=== PATIENT | male | born 1985 | race Caucasian/White ===

== ENCOUNTER 2017-11-21 19:28 | Emergency (ER) | payer SELFPAY ==
[~2017-11-21] VITALS: Ht 167.6 cm; Wt 68.5 kg
[~2017-11-21 19:28] MED LIST: ERYTOIN10 RIGHT EYE
[2017-11-21 19:35] VITALS: BP 168/65; PULSE 83; RESP 16; TEMP 99; O2SAT 96
--- NOTE | 2017-11-21 20:14 | PD ---
HPI Chief Complaint: Abdominal Pain Time Seen by Provider: 20:00 Travel History International Travel<30 days: No Contact w/Intl Traveler<30days: No Traveled to known affect area: No History of Present Illness HPI pt is a 32 y.o male with a hx of appendectomy at a younger age who presents to the ED with a CC of RLQ pain. Pt states that the pain started 3 days ago at work as a 7/10 sharp, non-radiating pain. Each episodes of pain lasted 30 minutes. Pt states that pain is now constant and 8/10.Denies associated fever, nausea, vomiting, dysuria, hematuria associated with the pain. Denies any hx of similar sxs. States pain worsens when he exerts himself or twists. History Past Medical History Medical History: Denies Significant Hx Social History Alcohol Use: Yes (SOCIAL) Tobacco Use: Yes (1 PPD) Allergies-Medications (Allergen,Severity, Reaction): Coded Allergies: No Known Allergies (Verified Adverse Reaction, Unknown, 11/21/17) Reported Meds & Prescriptions Reported Meds & Active Scripts Active No Active Prescriptions or Reported Medications Review of Systems Except as stated in HPI: all other systems reviewed are Neg Physical Exam Narrative GENERAL: Well-developed well-nourished no obvious distress, thin build. SKIN: Warm and dry. HEAD: Atraumatic. Normocephalic. EYES: Pupils equal and round. No scleral icterus. No injection or drainage. ENT: No nasal bleeding or discharge. Mucous membranes pink and moist. NECK: Trachea midline. No JVD. CARDIOVASCULAR: Regular rate and rhythm. RESPIRATORY: No accessory muscle use. Clear to auscultation. Breath sounds equal bilaterally. GASTROINTESTINAL: Abdomen soft,, nondistended. Hepatic and splenic margins not palpable. There is minimal tenderness with palpation of RLQ and supra-pubic region. There is no rebound no percussive tenderness, no CVA tenderness, no hernia, genitourinary examination is unremarkable. MUSCULOSKELETAL: Extremities without clubbing, cyanosis, or edema. No obvious deformities. NEUROLOGICAL: Awake and alert. No obvious cranial nerve deficits. Motor grossly within normal limits. Five out of 5 muscle strength in the arms and legs. Normal speech. PSYCHIATRIC: Appropriate mood and affect; insight and judgment normal. exam is unremarkable. No hernia or testicular mass appreciated. Data Data Last Documented VS Vital Signs Date Time Temp Pulse Resp B/P (MAP) Pulse Ox O2 Delivery O2 Flow Rate FiO2 11/21/17 19:35 99.0 83 16 168/65 (99) 96 Orders Orders Complete Blood Count With Diff (11/21/17 20:08) Comprehensive Metabolic Panel (11/21/17 20:08) Iv Access Insert/Monitor (11/21/17 20:08) Ecg Monitoring (11/21/17 20:08) Oximetry (11/21/17 20:08) Sodium Chloride 0.9% Flush (Ns Flush) (11/21/17 20:15) Ketorolac Inj (Toradol Inj) (11/21/17 20:15) Ed Discharge Order (11/21/17 21:54) Labs Laboratory Tests Test 11/21/17 20:20 White Blood Count 5.7 TH/MM3 Red Blood Count 4.93 MIL/MM3 Hemoglobin 14.8 GM/DL Hematocrit 42.8 % Mean Corpuscular Volume 87.0 FL Mean Corpuscular Hemoglobin 30.1 PG Mean Corpuscular Hemoglobin Concent 34.6 % Red Cell Distribution Width 11.9 % Platelet Count 205 TH/MM3 Mean Platelet Volume 8.9 FL Neutrophils (%) (Auto) 57.9 % Lymphocytes (%) (Auto) 34.0 % Monocytes (%) (Auto) 6.5 % Eosinophils (%) (Auto) 0.6 % Basophils (%) (Auto) 1.0 % Neutrophils # (Auto) 3.3 TH/MM3 Lymphocytes # (Auto) 1.9 TH/MM3 Monocytes # (Auto) 0.4 TH/MM3 Eosinophils # (Auto) 0.0 TH/MM3 Basophils # (Auto) 0.1 TH/MM3 CBC Comment DIFF FINAL Differential Comment Blood Urea Nitrogen 14 MG/DL Creatinine 1.20 MG/DL Random Glucose 98 MG/DL Total Protein 7.5 GM/DL Albumin 4.3 GM/DL Calcium Level 9.0 MG/DL Alkaline Phosphatase 84 U/L Aspartate Amino Transf (AST/SGOT) 14 U/L Alanine Aminotransferase (ALT/SGPT) 19 U/L Total Bilirubin 0.4 MG/DL Sodium Level 139 MEQ/L Potassium Level 3.5 MEQ/L Chloride Level 103 MEQ/L Carbon Dioxide Level 28.1 MEQ/L Anion Gap 8 MEQ/L Estimat Glomerular Filtration Rate 71 ML/MIN MDM Medical Decision Making Medical Screen Exam Complete: Yes Emergency Medical Condition: Yes Differential Diagnosis UTI, Peritonitis, ischemic colitis, inflammatory bowel disease, cholecystitis. Narrative Course Patient room to the emergency department, basic labs are reassuring, UA still pending the patient states he is feeling better would like to go home, discussed with him that no definitive cause of his pain is yet been identified but I favor musculoskeletal, he was quite a hurry to be discharged and limiting my ability to addiction treatment counselor him. He is stable for discharge at this time discussed follow-up with primary care physician or the [facility] Diagnosis Primary Impression: Abdominal pain of unknown cause Scripts No Active Prescriptions or Reported Meds Disposition: DISCHARGE HOME Condition: Stable Chuckie Higgins MD November 21, 2017 20:14
[2017-11-21] MEDS ORDERED: SODIUM CHLORIDE 0.9% FLUSH 10 ML FLUSH IV FLUSH PRN (20:15)
[2017-11-21] MEDS ORDERED: KETOROLAC TROMETHAMINE 30 MG/ML (IVP) VIAL IVP ONE (20:15)
[2017-11-21 20:31] LABS: AUTOMATED NEUTROPHIL # 3.3 TH/MM3 (1.8-7.7); BASOPHIL # 0.1 TH/MM3 (0-0.2); EOSINOPHIL % 0.6 % (0.0-4.0); HEMATOCRIT 42.8 % (39.0-51.0); HEMOGLOBIN 14.8 GM/DL (13.0-17.0); LYMPHOCYTE # 1.9 TH/MM3 (1.0-4.8); MEAN CORPUSCULAR HEMOGLOBIN 30.1 PG (27.0-34.0); MEAN CORPUSCULAR HGB CONC 34.6 % (32.0-36.0); MEAN PLATELET VOLUME 8.9 FL (7.0-11.0); MONO % 6.5 % (0.0-8.0); MONOCYTE # 0.4 TH/MM3 (0-0.9); NEUT % 57.9 % (16.0-70.0); PLATELET COUNT 205 TH/MM3 (150-450); RED BLOOD COUNT 4.93 MIL/MM3 (4.50-5.90); RED CELL DISTRIBUTION WIDTH 11.9 % (11.6-17.2); WHITE BLOOD COUNT 5.7 TH/MM3 (4.0-11.0)
[2017-11-21 20:38] LABS: CHLORIDE 103 MEQ/L (98-107); SODIUM (NA) 139 MEQ/L (136-145)
[2017-11-21 20:42] LABS: ALBUMIN 4.3 GM/DL (3.4-5.0); BICARBONATE 28.1 MEQ/L (21.0-32.0); BLOOD UREA NITROGEN 14 MG/DL (7-18); GLUCOSE,RANDOM 98 MG/DL (74-106)
[2017-11-21 20:45] LABS: ALT (GPT) 19 U/L (12-78); AST (GOT) 14 U/L (15-37); GLOMERULAR FILTRATION RATE 71 ML/MIN (>89)
[2017-11-21 20:46] LABS: TOTAL BILIRUBIN ADULT 0.4 MG/DL (0.2-1.0); TOTAL PROTEIN 7.5 GM/DL (6.4-8.2)
[2017-11-21 20:47] LABS: ALKALINE PHOSPHATASE 84 U/L (45-117)
== END 2017-11-21 22:06 | disposition home or self-care (01) ==
LOC: PHED 19:28
DX: R10.31 Right lower quadrant pain (principal); F17.200 Nicotine dependence, unspecified, uncomplicated
CPT/HCPCS: 80053; 85025; 96374; 99284; J1885